=== PATIENT | male | born 1985 | race Caucasian/White ===

== ENCOUNTER 2021-10-13 18:21 | Emergency (ER) | payer OTHER, SELFPAY ==
--- NOTE | ~2021-10-13 | CT_ITS ---
EXAMINATION: NONCONTRAST HEAD CT NONCONTRAST MAXILLOFACIAL CT NONCONTRAST CERVICAL SPINE CT INDICATION INFORMATION: Trauma. COMPARISON: CT head dated from 09/27/2016. TECHNIQUE: Separate noncontrast CT examinations of the head, maxillofacial bones, and cervical spine were performed. Coronal and sagittal images were created for each examination at the technologist workstation. This CT examination was performed using dose optimization techniques as appropriate, variously including the following: *Automated exposure control *Adjustment of mA and/or kV according to patient size (this includes techniques or standardized protocols for targeted exams where dose is matched to indication/reason for exam; i.e. extremities or head) *Use of iterative reconstruction technique DLP: 255 mGy-cm FINDINGS: Head: There is no evidence of acute intracranial hemorrhage or territorial infarction. No abnormal mass effect or midline shift is seen. Raymond to white matter differentiation is well preserved. No extra-axial fluid collections are identified. No hydrocephalus. No significant volume loss. There is no abnormal attenuation within the brain parenchyma. Frontal scalp hematoma. No calvarial fracture. The mastoid air cells are well aerated. Maxillofacial: Comminuted fractures of the left frontal sinusitis extending into the left superior ethmoidal air cells and left lamina papyracea. There are also bilateral nasal bone fractures. Hemo sinus in the left frontal sinus and ethmoidal air cells with also air-fluid levels in the left maxillary sinus and sphenoidal sinus, possibly also posttraumatic. The mandibular heads are well-seated in the condylar fossa. The orbits demonstrate a normal appearance bilaterally. The globes are intact, and there are no suspicious findings to suggest retrobulbar hemorrhage. Cervical spine: Anteroinferior avulsion fragment at the level of C5 with two additional tiny anteroinferior avulsion fragments at C4 and C6. There is also a tiny avulsion fragment in the posteroinferior aspect of C6. No acute compression deformities or malalignment. The posterior elements are intact. The atlantoaxial and atlantooccipital articulations are intact. No significant degenerative changes. No prevertebral soft tissue swelling. Visualized lung apices demonstrate emphysematous changes with indeterminate multifocal groundglass opacities. CT/CT cervical spine wo con IMPRESSION: 1. Naso-orbitoethmoid complex fracture as described in detail above involving the frontal sinuses, ethmoidal air cells, lamina papyracea and nasal bones. 2. Avulsion fractures at C4, C5 and C6. Correlate for pain and tenderness at these levels. For additional injuries such as ligamentous injuries, recommend further evaluation with an MR of the cervical spine if indicated. 3. No acute intracranial abnormalities. 4. Emphysematous changes in the lung apices with indeterminate groundglass opacities. Recommend correlation with a diagnostic chest CT. This critical result was discussed with LISA Pacheco at 10/13/2021 8:54 PM and it was ascertained that the content and urgency of the report was understood at the time of direct communication.
--- NOTE | 2021-10-13 18:36 | ED_ITS ---
HPI - Alcohol General Chief Complaint: Seizure Stated Complaint: seizure Time Seen by Provider: 10/13/21 19:09 Source: patient and EMS Mode of arrival: EMS Limitations: no limitations History of Present Illness HPI narrative: 35-year-old male presents via EMS after a seizure with head trauma at a detox facility. Patient is at this detox facility for alcohol withdrawal. Patient did fall on his face, nasal bridge is swollen and discolored, states to be dizzy with a headache. Patient was given 2 mg of IM Ativan. MD complaint: alcohol withdrawal Last drink: Days (ago) (2) Chronic alcohol use: Yes Previous visits for alcohol intoxication: No Recent trauma: Yes Associated symptoms: denies other symptoms Treatments prior to arrival: cervical collar and benzodiazepines Related Data Allergies Allergy/AdvReac Type Severity Reaction Status Date / Time No Known Allergies Allergy Unverified 06/04/20 19:00 [No Known Allergies*] Review of Systems Verdana 4l Review of Systems: Verdana 4d Verdana 4d Constitutional: Withdrawal seizure, No Fever, No Chills ENT/Mouth: No Ear Pain, No Hoarseness, No sore throat Eyes: No Eye Pain, No Swelling, No Redness, No Foreign Body Cardiovascular: No Chest Pain, No SOB Respiratory: No Cough, NoNo Dyspnea Gastrointestinal: No Nausea, No Vomiting, No Diarrhea, No abdominal Pain Genitourinary: No Dysuria, No Hematuria Musculoskeletal: positive headache, neck pain and facial trauma with pain, No Myalgias, No Joint Swelling Skin: No Skin lacerations, No rash Neuro: No Weakness, No Numbness, No Paresthesias, No Loss of Consciousness, No Dizziness, No Headache Psych: No Anxiety/Panic, No Depression Heme/Lymph: no easy bruising, no Lymphadenopathy Endocrine: No Polyuria, No Polydipsia Yes all other systems are reviewed and are negative PMFSH Past Medical History Attestation statement: The following information was validated with the patient. Source: old records reviewed Social History Social History Advance Directives: No Advance Directives Information Provided: No Physical Exam Verdana 4l Vital Signs: Verdana 4d Verdana 4d Vital Signs: Verdana 4d Verdana 4Bd Last Vital Signs Verdana 4d Wax Machine Operator New 4d Wax Machine Operator New 4d Temp 98.5 F 10/13/21 18:41 Wax Machine Operator New 4d Pulse 112 H 10/13/21 18:41 Wax Machine Operator New 4d Resp 18 10/13/21 18:41 BP 119/82 10/13/21 18:41 Pulse Ox 98 10/13/21 18:41 BMI result Body Mass Index 18.6 Appearance: Alert. Oriented X3. Moderate distress. Head: Abrasion, trauma, nasal bridge swelling, black eyes. Eyes: PERRLA. EOMI. Conjunctiva and sclera normal. ENT: TM's Normal. Pharynx normal. Uvula midline. Moist mucous membranes. No trismus noted. No drooling noted. No muffled voice noted. Neck: Normal inspection. Neck supple. No adenopathy. No meningeal signs. Tenderness noted to cervical spine. No step-off noted. CVS: Normal heart rate and rhythm. Heart sound normal. No murmurs noted. Pulses equal to all extremities. Respiratory: No respiratory distress. Painless inspiration. Breath sounds normal. No wheezes/rales/rhonchi noted. Chest nontender. No accessory muscle usage noted or decreased air movement noted. Abdomen: Soft and nontender. Bowel sounds normal in all 4 quadrants. No distention noted. No organomegaly noted. No visible injury noted. Back: No CVA tenderness. Full range of motion noted. Skin: Skin warm and dry. Normal skin color. Normal skin turgor. No rashes/lesions/lacerations noted. Extremities: No lower extremity edema. Extremities exhibit normal range of motion. Extremities nontender. Neuro: cranial nerves 2-12 intact, no focal neural deficits, strength 5/5 to all extremities, No motor deficit. No sensory deficit. Course Course Course Narrative: 35-year-old male presents via EMS for facial trauma after seizure. Patient presents from a detox facility for alcohol, was given 2 mg of IM Ativan on transit. Seizure activity lasted for approximately 3 minutes and has now subsided. Patient is alert oriented x4, neurovascularly intact, no septal hemat baldev noted. Some tenderness to cervical spine without any step-offs. Moves all extremities and has brisk capillary refill. Will order CT scan of head neck, and facial bones. Start [facility]. The [place] Scale 15. 7:00 p.m. patient is alert oriented 4. Resting comfortably. No complaints at this time. CT scans are pending. 8:50 p.m. discussion with Radiology, facial fracture frontal sinus, cervical spine avulsion fragment on c5. Dr. Hinson reviewed CT scans with this ENAMELER. Will start Zosyn and fluids. Sodium 130. Discussion with hospitalist, hospitalist would like transfer as we do not have maxillary facial surgeon or ENT on-call at this facility. I did discuss this plan with patient, he agrees with plan. 9:29 p.m. discussion with [facility] trauma, excepting physician Dr. Toro. 10:58 p.m. CIWA score 12. Verbal order for IV the Ativan to RN. 11:29 p.m. patient resting comfortably, even unlabored respirations. Heart rate 99. Afebrile. 11:56 p.m. EMS here for transport. Consultations Consultation #1: Edie Time: 21:00 Consultation #2: [facility] Time: 21:10 Consultation #3: [facility] trauma Time: 21:20 MDM - Alcohol MDM Narrative Medical decision making narrative: Facial fracture, nasal fracture, subdural, cervical fracture Differential Diagnosis Differential diagnosis: Likely alcohol withdrawal delirium, hypomagnesemia and alcohol withdrawal syndrome Medical Records Attestation: I reviewed the patient's medical records. Lab Data Attestation: I reviewed the patient's lab results. Result diagrams: 10/13/21 20:07 10/13/21 20:07 Labs: Lab Results 10/13/21 10/13/21 10/13/21 Range/Units 20:07 20:07 20:07 WBC 8.4 (4.8-10.8) X10*3/uL RBC 3.65 L (4.60-5.80) X10*6/uL Hgb 12.0 L (14.0-18.0) g/dl Hct 33.4 L (42.0-52.0) % MCV 91.5 (80.0-98.0) fL MCH 32.9 (27.0-33.0) pg MCHC 35.9 (31.0-36.0) g/dl RDW 12.3 (11.0-16.0) % Plt Count 127 L (160-400) X10*3/uL MPV 10.6 (9.4-12.4) fL Immature Gran % (Auto) 0.7 H (0.0-0.4) % Neut % (Auto) 87.4 H (45-73) % Lymph % (Auto) 6.4 L (20-40) % Tate % (Auto) 5.0 (2-11) % Eos % (Auto) 0.1 (0-4) % Baso % (Auto) 0.4 (0-2) % Lymph # (Auto) 0.5 L (1.2-4.9) X10*3/uL Tate # (Auto) 0.4 (0.1-1.2) X10*3/uL Eos # (Auto) 0.0 (0.0-0.4) X10*3/uL Baso # (Auto) 0.0 (0.0-0.2) X10*3/uL Abs Immat Gran (auto) 0.06 H (0.00-0.03) X10*3/uL Absolute Neuts (auto) 7.3 (2.0-8.3) x10*3/uL Absolute Nucleated RBC 0.000 (0.0-0.012) X10*3/uL Nucleated RBC % (auto) 0.0 (0.0-0.2) /100WBC Smear Tech's Comments VERIFIED PT (9.9-13.0) SEC INR (0.9-1.1) APTT 26.0 (24.1-38.0) SEC Sodium 130 L (135-145) mmol/L Potassium 3.5 (3.3-5.1) mmol/L Chloride 91 L (96-108) mmol/L Carbon Dioxide 27 (22-29) mmol/L Anion Gap 16 (12-20) BUN 4 L (9-16) mg/dL Creatinine 0.74 (0.5-1.4) mg/dL Estim Creat Clear Calc 107.3 Estimated GFR > 60 Random Glucose 103 (60-115) mg/dL Calcium 9.2 (8.4-10.2) mg/dL Magnesium 2.1 (1.6-2.6) mg/dL Total Bilirubin 1.6 H (0.0-1.0) mg/dL Direct Bilirubin 0.7 H (0.0-0.5) mg/dL AST 46 H (5-37) U/L ALT 19 (0-40) U/L Alkaline Phosphatase 126 H (39-117) U/L Total Protein 7.3 (6.5-8.0) g/dL Albumin 3.9 (3.5-5.0) g/dL Lipase 32 (8-78) U/L Urine Opiates Screen (Not Detect) Urine Fentanyl Screen (Not Detect) Ur Barbiturates Screen (Not Detect) Ur Phencyclidine Scrn (Not Detect) Ur Amphetamines Screen (Not Detect) U Benzodiazepines Scrn (Not Detect) Urine Cocaine Screen (Not Detect) U Marijuana (THC) Screen (Not Detect) Ethyl Alcohol mg/dL COVID-19 (LUIS FELIPE) (Negative) COVID-19 Clin Com 10/13/21 10/13/21 10/13/21 Range/Units 20:07 20:07 20:08 WBC (4.8-10.8) X10*3/uL RBC (4.60-5.80) X10*6/uL Hgb (14.0-18.0) g/dl Hct (42.0-52.0) % MCV (80.0-98.0) fL MCH (27.0-33.0) pg MCHC (31.0-36.0) g/dl RDW (11.0-16.0) % Plt Count (160-400) X10*3/uL MPV (9.4-12.4) fL Immature Gran % (Auto) (0.0-0.4) % Neut % (Auto) (45-73) % Lymph % (Auto) (20-40) % Tate % (Auto) (2-11) % Eos % (Auto) (0-4) % Baso % (Auto) (0-2) % Lymph # (Auto) (1.2-4.9) X10*3/uL Tate # (Auto) (0.1-1.2) X10*3/uL Eos # (Auto) (0.0-0.4) X10*3/uL Baso # (Auto) (0.0-0.2) X10*3/uL Abs Immat Gran (auto) (0.00-0.03) X10*3/uL Absolute Neuts (auto) (2.0-8.3) x10*3/uL Absolute Nucleated RBC (0.0-0.012) X10*3/uL Nucleated RBC % (auto) (0.0-0.2) /100WBC Smear Tech's Comments PT 11.1 (9.9-13.0) SEC INR 1.0 (0.9-1.1) APTT (24.1-38.0) SEC Sodium (135-145) mmol/L Potassium (3.3-5.1) mmol/L Chloride (96-108) mmol/L Carbon Dioxide (22-29) mmol/L Anion Gap (12-20) BUN (9-16) mg/dL Creatinine (0.5-1.4) mg/dL Estim Creat Clear Calc Estimated GFR Random Glucose (60-115) mg/dL Calcium (8.4-10.2) mg/dL Magnesium (1.6-2.6) mg/dL Total Bilirubin (0.0-1.0) mg/dL Direct Bilirubin (0.0-0.5) mg/dL AST (5-37) U/L ALT (0-40) U/L Alkaline Phosphatase (39-117) U/L Total Protein (6.5-8.0) g/dL Albumin (3.5-5.0) g/dL Lipase (8-78) U/L Urine Opiates Screen (Not Detect) Urine Fentanyl Screen (Not Detect) Ur Barbiturates Screen (Not Detect) Ur Phencyclidine Scrn (Not Detect) Ur Amphetamines Screen (Not Detect) U Benzodiazepines Scrn (Not Detect) Urine Cocaine Screen (Not Detect) U Marijuana (THC) Screen (Not Detect) Ethyl Alcohol < 10 mg/dL COVID-19 (LUIS FELIPE) Negative (Negative) COVID-19 Clin Com See Note 10/13/21 Range/Units 22:59 WBC (4.8-10.8) X10*3/uL RBC (4.60-5.80) X10*6/uL Hgb (14.0-18.0) g/dl Hct (42.0-52.0) % MCV (80.0-98.0) fL MCH (27.0-33.0) pg MCHC (31.0-36.0) g/dl RDW (11.0-16.0) % Plt Count (160-400) X10*3/uL MPV (9.4-12.4) fL Immature Gran % (Auto) (0.0-0.4) % Neut % (Auto) (45-73) % Lymph % (Auto) (20-40) % Tate % (Auto) (2-11) % Eos % (Auto) (0-4) % Baso % (Auto) (0-2) % Lymph # (Auto) (1.2-4.9) X10*3/uL Tate # (Auto) (0.1-1.2) X10*3/uL Eos # (Auto) (0.0-0.4) X10*3/uL Baso # (Auto) (0.0-0.2) X10*3/uL Abs Immat Gran (auto) (0.00-0.03) X10*3/uL Absolute Neuts (auto) (2.0-8.3) x10*3/uL Absolute Nucleated RBC (0.0-0.012) X10*3/uL Nucleated RBC % (auto) (0.0-0.2) /100WBC Smear Tech's Comments PT (9.9-13.0) SEC INR (0.9-1.1) APTT (24.1-38.0) SEC Sodium (135-145) mmol/L Potassium (3.3-5.1) mmol/L Chloride (96-108) mmol/L Carbon Dioxide (22-29) mmol/L Anion Gap (12-20) BUN (9-16) mg/dL Creatinine (0.5-1.4) mg/dL Estim Creat Clear Calc Estimated GFR Random Glucose (60-115) mg/dL Calcium (8.4-10.2) mg/dL Magnesium (1.6-2.6) mg/dL Total Bilirubin (0.0-1.0) mg/dL Direct Bilirubin (0.0-0.5) mg/dL AST (5-37) U/L ALT (0-40) U/L Alkaline Phosphatase (39-117) U/L Total Protein (6.5-8.0) g/dL Albumin (3.5-5.0) g/dL Lipase (8-78) U/L Urine Opiates Screen Not Detected (Not Detect) Urine Fentanyl Screen Not Detected (Not Detect) Ur Barbiturates Screen POSITIVE H (Not Detect) Ur Phencyclidine Scrn Not Detected (Not Detect) Ur Amphetamines Screen Not Detected (Not Detect) U Benzodiazepines Scrn Not Detected (Not Detect) Urine Cocaine Screen Not Detected (Not Detect) U Marijuana (THC) Screen POSITIVE H (Not Detect) Ethyl Alcohol mg/dL COVID-19 (LUIS FELIPE) (Negative) COVID-19 Clin Com Imaging Data CT head, facial bones and cervical spine: Attestation: I personally reviewed and interpreted this imaging study as follows: Radiologist's impression: FINDINGS: Head: There is no evidence of acute intracranial hemorrhage or territorial infarction. No abnormal mass effect or midline shift is seen. Raymond to white matter differentiation is well preserved. No extra-axial fluid collections are identified. No hydrocephalus. No significant volume loss. There is no abnormal attenuation within the brain parenchyma. Frontal scalp hematoma. No calvarial fracture. The mastoid air cells are well aerated. Maxillofacial: Comminuted fractures of the left frontal sinusitis extending into the left superior ethmoidal air cells and left lamina papyracea. There are also bilateral nasal bone fractures. Hemo sinus in the left frontal sinus and ethmoidal air cells with also air-fluid levels in the left maxillary sinus and sphenoidal sinus, possibly also posttraumatic. The mandibular heads are well-seated in the condylar fossa. The orbits demonstrate a normal appearance bilaterally. The globes are intact, and there are no suspicious findings to suggest retrobulbar hemorrhage. Cervical spine: Anteroinferior avulsion fragment at the level of C5 with two additional tiny anteroinferior avulsion fragments at C4 and C6. There is also a tiny avulsion fragment in the posteroinferior aspect of C6. No acute compression deformities or malalignment. The posterior elements are intact. The atlantoaxial and atlantooccipital articulations are intact. No significant degenerative changes. No prevertebral soft tissue swelling. Visualized lung apices demonstrate emphysematous changes with indeterminate multifocal groundglass opacities. CT/CT cervical spine wo con IMPRESSION: 1.? Naso-orbitoethmoid complex fracture as described in detail above involving the frontal sinuses, ethmoidal air cells, lamina papyracea and nasal bones. ? 2.? Avulsion fractures at C4, C5 and C6. Correlate for pain and tenderness at these levels. For additional injuries such as ligamentous injuries, recommend further evaluation with an MR of the cervical spine if indicated. ? 3.? No acute intracranial abnormalities. ? 4.? Emphysematous changes in the lung apices with indeterminate groundglass opacities. Recommend correlation with a diagnostic chest CT. ? This critical result was discussed with LISA Pacheco at 10/13/2021 8:54 PM and it was ascertained that the content and urgency of the report was understood at the time of direct communication. Critical Care Time Critical Care Time Critical Care Time: Yes Total Critical Care Time: 90 Attestation: I have personally provided critical care time exclusive of time spent on separately billable procedures. Time includes review of laboratory data, radiology results, discussion with consultants, and monitoring for potential decompensation. Interventions were performed as documented. Discharge Plan Discharge Clinical Impression: Alcohol withdrawal seizure, C4 cervical fracture, C5 cervical fracture, C6 cervical fracture, Fracture of frontal sinus, Fracture of nasal bones Patient Disposition: [facility] Transfer Details: Dr. Tay, [facility] trauma
--- NOTE | 2021-10-13 18:36 | ECG_ITS ---
Test Reason : CP Blood Pressure : / mmHG Vent. Rate : 104 BPM Atrial Rate : 104 BPM P-R Int : 130 ms QRS Dur : 082 ms QT Int : 356 ms P-R-T Axes : 078 074 068 degrees QTc Int : 468 ms Sinus tachycardia Otherwise normal ECG When compared with ECG of 27-SEP-2016 19:22, No significant change was found Referred By: Tala Ross Electronically Signed By:ANDREY FOSTER MD
[2021-10-13 18:41] VITALS: BP 119/82; BP 123/90; PULSE 112; PULSE 120; RESP 18; TEMP 36.9; O2SAT 98; O2SAT 99; BMI 18.6
[2021-10-13 20:15] LABS: Mean Platelet Volume 10.6 fL (9.4-12.4); PLT CLUMP 1; Red Cell Distribution Width 12.3 % (11.0-16.0); SCAN SMEAR FLAG 1
[2021-10-13 20:17] LABS: Basophils Percent Auto 0.4 % (0-2); Eosinophils Percent Auto 0.1 % (0-4); Hematocrit 33.4 % (42.0-52.0); Imm Gran Abs Auto 0.06 X10*3/uL (0.00-0.03); Imm Gran Pct Auto 0.7 % (0.0-0.4); Lymphocytes Absolute Auto 0.5 X10*3/uL (1.2-4.9); Lymphocytes Percent Auto 6.4 % (20-40); MANUAL DIFF FLAG SCAN; Mean Corpuscular HGB Conc 35.9 g/dl (31.0-36.0); Mean Corpuscular Hemoglobin 32.9 pg (27.0-33.0); Mean Corpuscular Volume 91.5 fL (80.0-98.0); Monocytes Absolute Auto 0.4 X10*3/uL (0.1-1.2); Neutrophils Absolute Auto 7.3 x10*3/uL (2.0-8.3); Neutrophils Percent Auto 87.4 % (45-73); Red Blood Count 3.65 X10*6/uL (4.60-5.80)
[2021-10-13] MEDS: Diphth,Pertus(ACell),Tet Adult 0.5 ML SYRINGE IM (20:17)
[2021-10-13 20:20] LABS: Prothrombin Time 11.1 SEC (9.9-13.0)
[2021-10-13 20:26] LABS: Ethanol < 10 mg/dL
[2021-10-13 20:31] LABS: COVID-19 Test Negative (Negative)
[2021-10-13 20:32] LABS: Alanine Aminotransferase 19 U/L (0-40); Albumin Level 3.9 g/dL (3.5-5.0); Alkaline Phosphatase 126 U/L (39-117); Anion Gap 16 (12-20); Aspartate Amino Transferase 46 U/L (5-37); Bilirubin Direct 0.7 mg/dL (0.0-0.5); Bilirubin Total 1.6 mg/dL (0.0-1.0); Blood Urea Nitrogen 4 mg/dL (9-16); Calcium 9.2 mg/dL (8.4-10.2); Carbon Dioxide 27 mmol/L (22-29); Chloride 91 mmol/L (96-108); Creatinine Clr Calc Pharmacy 107.3; Estimated Glomerular Filt Rate > 60; Glucose Random 103 mg/dL (60-115); Lipase 32 U/L (8-78); Magnesium 2.1 mg/dL (1.6-2.6); Platelet Count 127 X10*3/uL (160-400); Potassium 3.5 mmol/L (3.3-5.1); SLIDE REVIEW VERIFIED; Sodium 130 mmol/L (135-145); Total Protein 7.3 g/dL (6.5-8.0); White Blood Count 8.4 X10*3/uL (4.8-10.8)
[2021-10-13] MEDS: Piperacillin Sodium/Tazobactam 3.375 GM in 0.9 % Sodium Chloride 50 ML IV (21:18)
--- NOTE | 2021-10-13 21:25 | PC.NURSE ---
call out to [facility] trauma. spoke with jean-claude who took pt info and states trauma will call provider back
[2021-10-13] MEDS: 0.9 % Sodium Chloride 1,000 ML 999 ML IVCONT (22:52)
[2021-10-13 23:23] LABS: Amphetamine Screen Urine Not Detected (Not Detect); Barbiturates, Urine POSITIVE (Not Detect); Benzodiazepines Screen Urine Not Detected (Not Detect); Cannabinoid Screen Urine POSITIVE (Not Detect); Cocaine Screen Urine Not Detected (Not Detect); Fentanyl, urine Not Detected (Not Detect); Opiate Screen Urine Not Detected (Not Detect); Phencyclidine Screen Urine Not Detected (Not Detect)
[2021-10-13] MEDS: LORazepam 2 MG/ML VIAL IVPUSH (23:50)
[2021-10-14 00:03] VITALS: BP 138/90; PULSE 99
[2021-10-14 09:53] LABS: Folate 5.7 ng/mL (> or = 4.0); Vitamin B12 489 pg/mL (200-900)
== END 2021-10-14 00:06 | disposition short-term general hospital (02) ==
PROVIDERS: Nurse Practitioner Family; Emergency Provider Emergency Medicine
DX: F10.139 Alcohol abuse with withdrawal, unspecified (principal); Y90.0 Blood alcohol level of less than 20 mg/100 ml; G40.509 Epileptic seizures related to external causes, not intractable, without status epilepticus; S00.33XA Contusion of nose, initial encounter; S02.2XXA Fracture of nasal bones, initial encounter for closed fracture; S02.19XA Other fracture of base of skull, initial encounter for closed fracture; S12.300A Unspecified displaced fracture of fourth cervical vertebra, initial encounter for closed fracture; S12.400A Unspecified displaced fracture of fifth cervical vertebra, initial encounter for closed fracture; S12.500A Unspecified displaced fracture of sixth cervical vertebra, initial encounter for closed fracture; W01.198A Fall on same level from slipping, tripping and stumbling with subsequent striking against other object, initial encounter; Z20.822 Contact with and (suspected) exposure to COVID-19; Y93.89 Activity, other specified; Y92.199 Unspecified place in other specified residential institution as the place of occurrence of the external cause; Y99.9 Unspecified external cause status
CPT/HCPCS: 36415; 70450; 70486; 72125; 80048; 80076; 80307; 82077; 82607; 82746; 83690; 83735; 85025; 85610; 85730; 87635; 90471; 90715; 93005; 96361; 96365; 96375; 99285; 99291; 99292; J2060; J2543